=== PATIENT | female | born 1990 | race Caucasian/White ===

== ENCOUNTER 2017-03-07 16:09 | Emergency (ER) | payer OTHER ==
[~2017-03-07] VITALS: Ht 165.1 cm; Wt 118.0 kg
[~2017-03-07 16:09] MED LIST: FERR-31 PO; IBUP-1542 PO; Lanolin TOP; MACBID PO; PNV1TABL50
[2017-03-07 16:29] VITALS: Ht 165.1 cm; Wt 118.0 kg
[2017-03-07] MEDS ORDERED: D-ME473S18 PO (19:03)
[2017-03-07] MEDS ORDERED: AZIT250T94 PO (19:03)
--- NOTE | 2017-03-07 19:21 | ERD ---
ER Documentation Chief Complaint Date/Time DATE: 03/07/17 TIME: 19:19 Chief Complaint sob and back pain HPI This is a 26-year-old female that presents to the ER with a cough that started last Thursday. Per patient she has had fevers and chills. Patient went to see her primary care doctor on Thursday, she was told this is only a virus. Patient states that her cough is gone is significantly worse and she is not experiencing back pain from severe coughing and chest pain with shortness of breath. She denies any recent travel, she denies any leg pain, redness, swelling. Chest pain is nonexertional, and only happens when she is coughing. Patient denies any sore throat, ear pain, runny nose. Patient had childhood asthma and feels that this is making her asthma come back. ROS 12 point review of systems was done, all negative except per HPI. Medications Home Meds Active Scripts Dextromethorphan Hb-Promethazine Hcl (Promethazine DM Syrup) 473 Ml Syrup, 10 ML PO Q6H Y for COUGH, #4 OZ Prov:GAMALIEL BURROUGHS 03/07/17 Azithromycin* (Zithromax*) 250 Mg Tablet, 250 MG PO .ZPACK DIRECTED, #6 TAB TAKE 500 MG (2 TABS) THE FIRST DAY THEN 250 MG (1 TAB) DAYS 2-5 Prov:GAMALIEL BURROUGHS 03/07/17 Nitrofurantoin Monohyd Macrocr (Macrobid) 100 Mg Capsr, 100 MG PO BID Y for uti for 7 Days Prov:LYDIA MCDANIELS MD 09/23/14 [Lanolin] 1 APPLIC OINT No Conflict Check, 1 APPLIC TOP BEDSIDE MEDICATION Y for BEDSIDE FOR MAGDALENA TO NIPPLES for 7 Days, 5 Refills Prov:LYDIA MCDANIELS MD 09/23/14 Ibuprofen* (Motrin*) 600 Mg Tab, 600 MG PO Q6 for 10 Days, TAB Prov:LYDIA MCDANIELS MD 09/23/14 Reported Medications Ferrous Sulfate (Iron Supplement) 1 Tab Tablet, 1 TAB PO DAILY 08/10/14 Pnv With Ca,No.71/Iron/Fa (PRENAPLUS TABLET) 1 Each Tablet 05/02/14 Allergies Allergies: Coded Allergies: No Known Drug Allergy (Verified Allergy, Mild, 09/19/14) PMhx/Soc Medical and Surgical Hx: pt denies Medical Hx History of Surgery: No Anesthesia Reaction: No Hx Neurological Disorder: No Hx Respiratory Disorders: No Hx Cardiac Disorders: No Hx Psychiatric Problems: No Hx Miscellaneous Medical Probl: Yes (recent c section) Hx Alcohol Use: No Hx Substance Use: No Hx Tobacco Use: No Smoking Status: Never smoker Physical Exam Vitals Vital Signs Date Time Temp Pulse Resp B/P Pulse Ox O2 Delivery O2 Flow Rate FiO2 03/07/17 16:29 97.9 93 13 131/79 97 Physical Exam GENERAL: The patient is well-developed, well-nourished, in no acute distress. NECK: Cervical spine is non tender with no step off. Supple, no nuchal rigidity HEENT: Atraumatic. Pupils equal, round and reactive to light. Extraocular muscles are grossly intact. Conjunctivae pink, no discharge. Bilateral tympanic membranes are clear with no evidence of erythema, effusion or dulling of the light reflex. Tonsilar erythema with no exudates or uvular deviation. Clear rhinorrhea. RESPIRATORY: Clear to auscultation bilaterally. There are no rales, wheezes or rhonchi. HEART: Regular rate and rhythm. No murmurs, clicks, rubs or gallops. EXTREMITIES: No clubbing or cyanosis. Full range of motion. Grossly neurovascularly intact. NEUROLOGIC: Alert and oriented. Cranial nerves II through XII are intact. SKIN: There is no rash. The skin is warm and dry. Procedures/MDM EKG was done 71bpm no ST elevation no t wave inversion. read by dr. villaseñor Differential diagnosis includes but is not limited to; Viral URI, allergic rhinitis, bronchitis, pertussis,pneumonia. Patient will be sent home with azithromycin and promethazine, patient has had the symptoms for a week now and states she is getting worse. Because of this she'll be treated for possible bacterial etiology.. Clinical suspicion for pneumonia is low as patient appears well, is not hypoxic or in any respiratory distress. Additionally, patients physical examination is benign. Plan was discussed with patient they understand and agree. Patient needs to follow up with PCP in 1-2 days or return to ER sooner if symptoms worsen. Departure Diagnosis: Primary Impression: Bronchitis Condition: Stable Patient Instructions: Bronchitis With Wheezing (Adult) Additional Instructions: Call your primary care doctor TOMORROW for an appointment during the next 1-2 days.See the doctor sooner or return here if your condition worsens before your appointment time. GAMALIEL BURROUGHS Mar 07, 2017 19:21
--- NOTE | 2017-03-07 21:03 | RADRPT ---
AMENDMENT: 03/07/2017 9:04:22 PM Adelaida Flores M.D Addendum: RPTAT: HDC PROCEDURE: XR Chest. CLINICAL INDICATION: Cough TECHNIQUE: AP Portable chest. COMPARISON: None available FINDINGS: The soft tissues and bones are normal. No focal infiltrates, masses, or effusions are noted. The m ediastinum and heart are normal. No pneumothorax is present. IMPRESSION: 1. No radiographic evidence for acute cardiopulmonary disease. .Adelaida Flores MD, Date Time Electronically viewed and signed by .Adelaida Flores MD, MD on 03/07/2017 21:04 .C/
== END 2017-03-07 19:30 | disposition home or self-care (01) ==
LOC: FTE 16:09
DX: J20.9 Acute bronchitis, unspecified (principal)
CPT/HCPCS: 71010; 93005

== ENCOUNTER 2017-06-02 18:17 | Emergency (ER) | payer SELFPAY ==
[~2017-06-02] VITALS: Ht 162.6 cm; Wt 118.0 kg
[~2017-06-02 18:17] MED LIST changes: +AZIT250T94 PO; +D-ME473S18 PO
[2017-06-02 19:00] VITALS: Ht 162.6 cm; Wt 118.0 kg
== END 2017-06-03 01:40 | disposition left against medical advice (07) ==
LOC: FTE 18:17
DX: Z53.21 Procedure and treatment not carried out due to patient leaving prior to being seen by health care provider (principal)

== ENCOUNTER 2017-06-03 08:54 | Emergency (ER) | payer OTHER ==
[~2017-06-03] VITALS: Ht 162.6 cm; Wt 118.5 kg
[2017-06-03 09:01] VITALS: Ht 162.6 cm; Wt 118.5 kg
--- NOTE | 2017-06-03 10:00 | ERD ---
ER Documentation Chief Complaint Date/Time DATE: 06/03/17 TIME: 09:58 Chief Complaint HEADACHE AND COUGH X 4 DAYS HPI 26-year-old female presents emergency part with cough, tactile fevers, congestion, headache for the past 4 days. She is here with family members, including her son and with similar symptoms. There is no history of apnea, cyanosis, vomiting or diarrhea. Patient has not had any recent travel. ROS All systems reviewed and are negative except as per history of present illness. Medications Home Meds Active Scripts Dextromethorphan Hb-Promethazine Hcl (Promethazine DM Syrup) 473 Ml Syrup, 10 ML PO Q6H Y for COUGH, #4 OZ Prov:GAMALIEL BURROUGHS 03/07/17 Azithromycin* (Zithromax*) 250 Mg Tablet, 250 MG PO .ZPACK DIRECTED, #6 TAB TAKE 500 MG (2 TABS) THE FIRST DAY THEN 250 MG (1 TAB) DAYS 2-5 Prov:GAMALIEL BURROUGHS 03/07/17 Nitrofurantoin Monohyd Macrocr (Macrobid) 100 Mg Capsr, 100 MG PO BID Y for uti for 7 Days Prov:LYDIA MCDANIELS MD 09/23/14 [Lanolin] 1 APPLIC OINT No Conflict Check, 1 APPLIC TOP BEDSIDE MEDICATION Y for BEDSIDE FOR MAGDALENA TO NIPPLES for 7 Days, 5 Refills Prov:LYDIA MCDANIELS MD 09/23/14 Ibuprofen* (Motrin*) 600 Mg Tab, 600 MG PO Q6 for 10 Days, TAB Prov:LYDIA MCDANIELS MD 09/23/14 Reported Medications Ferrous Sulfate (Iron Supplement) 1 Tab Tablet, 1 TAB PO DAILY 08/10/14 Pnv With Ca,No.71/Iron/Fa (PRENAPLUS TABLET) 1 Each Tablet 05/02/14 Allergies Allergies: Coded Allergies: No Known Drug Allergy (Verified Allergy, Mild, 09/19/14) PMhx/Soc History of Surgery: No Anesthesia Reaction: No Hx Neurological Disorder: No Hx Respiratory Disorders: No Hx Cardiac Disorders: No Hx Psychiatric Problems: No Hx Miscellaneous Medical Probl: Yes (recent c section) Hx Alcohol Use: No Hx Substance Use: No Hx Tobacco Use: No Smoking Status: Never smoker Physical Exam Vitals Vital Signs Date Time Temp Pulse Resp B/P Pulse Ox O2 Delivery O2 Flow Rate FiO2 06/03/17 09:01 97.8 79 16 140/87 98 Physical Exam General: Well-developed, well-nourished. The patient appears in no acute distress. HEENT: Head is normocephalic, atraumatic. No scleral icterus. Pupils are equal , round, and reactive. Oral mucous membranes are moist. No pharyngeal erythema. TMs normal. Neck: Supple. Nontender. Lungs: Clear to auscultation. Normal air movement. Heart: Regular rate and rhythm. S1 and S2 are normal. No murmurs, gallops, or rubs. Abdomen: Soft, nontender, nondistended. Bowel sounds are normoactive. Extremities: No clubbing or cyanosis. Normal pulses. Moving extremities x 4. No weakness. Neurologic: Alert and oriented 3. No focal deficits. Skin: Normal turgor. No rash or lesions. Procedures/MDM The patient is a 26-year-old female who comes in with an acute upper respiratory infection, presumed viral. The patient has a differential diagnosis of a viral upper respiratory infection, bacterial upper respiratory infection, bronchitis, pneumonia, pharyngitis, laryngitis, epiglottitis, croup, pneumonia. Patient has a normal pulmonary examination, clear breath sounds, normal pulse oximetry, with no corrective measures needed at this time. Fluids, rest, antipyretics were encouraged. Departure Diagnosis: Primary Impression: Cough Condition: Good DANNA GARY PA-C Jun 03, 2017 09:59
== END 2017-06-03 12:29 | disposition home or self-care (01) ==
LOC: FTE 08:54
DX: R05 Cough (principal)
CPT/HCPCS: 99284